=== PATIENT | male | born 1980 | race Caucasian/White ===

== ENCOUNTER 2018-12-25 15:01 | Emergency (ER) | payer BC, OTHER ==
[2018-12-25 15:12] VITALS: BMI 42.4
--- NOTE | 2018-12-25 15:28 | PDOC ---
Attending Attestation - Resident Resident Name: Riley Dent - ED Attending Attestation I have performed the following: I have examined & evaluated the patient, The case was reviewed & discussed with the resident, I agree w/resident's findings & plan, Exceptions are as noted - HPI HPI: 12/25/18 15:26 38y M hx of htn (on lisinopril) presents with hypertension patient was noted to be hypertensive was sent to urgent care and then to the emergency department. Patient denies any other complaints including chest pain, headache, dizziness, shortness of breath, dyspnea on exertion, numbness, tingling, weakness, blurry vision, lower extremity edema. Patient endorses drinking a cup of coffee daily this morning at 5 AM but none since, denies any new medications. The patient did take an extra dose of lisinopril prior to coming in (20mg in the morning, 20 mg prior to arrival). Patient does endorse feeling slightly vertiginous very briefly when he was driving about a week ago but that has since resolved. Patient is currently asymptomatic. The patient did have his blood pressure taken at his doctor's office approximately 2 weeks ago which was normal - Physicial Exam PE: 12/25/18 15:32 GENERAL: The patient is awake, alert, and fully oriented, Nontoxic - in no acute distress. HEAD: Normocephalic, atraumatic. EYES: extraocular movements intact, sclera anicteric, conjunctiva clear. ENT: Normal voice, Moist mucous membranes. NECK: Normal range of motion, supple LUNGS: Breath sounds equal, clear to auscultation bilaterally. No wheezes, no rhonchi, no rales. HEART: Regular rate and rhythm, normal S1 and S2 without murmur, rub or gallop. ABDOMEN: Soft, nontender, No guarding, no rebound. No CVA tenderness EXTREMITIES: Normal range of motion, no edema. NEUROLOGICAL: No facial assymetry, Normal speech, PSYCH: Normal mood, normal affect. SKIN: Warm, Dry, normal turgor, - Medical Decision Making 12/25/18 15:32 Asymptomatic hypertension, will obtain basic blood work, EKG will control the patient's blood pressure 12/25/18 18:53 Patient's lab work was reviewed Will give the patient labetalol for his blood pressure anticipate discharge if blood pressure is managed with follow-up on Friday with Dr. Astorga 12/25/18 19:13 pts repeat bp improved continues to be asypmmtaic will jelani benítez pmd fu on friday return percautions were discussed
--- NOTE | 2018-12-25 15:49 | PDOC ---
History of Present Illness - General Chief Complaint: Blood Pressure Problem Stated Complaint: HYPERTENSION Time Seen by Provider: 12/25/18 15:22 - History of Present Illness Initial Comments: 12/25/18 16:08 38 y/o M hx of HTN presentws to the ER with elevated BP from [facility] where he was undergoing evalution for weight loss surgery. Evaluation at urgent care showed max BP at 230/120 and low at 203/120. Pt is on lisinopril and took his medication as prescribed. He denies any headache, blurry vision, hx of kidney disease, liver disease, heart disease. EKG was done at urgent care and showed sinus rhythm with voltage criteria for LVH. Past History - Past Medical History Allergies/Adverse Reactions: Allergies Allergy/AdvReac Type Severity Reaction Status Date / Time No Known Allergies Allergy Verified 12/25/18 15:07 Home Medications: Ambulatory Orders Lisinopril 20 mg PO BID 12/25/18 COPD: No - Psycho Social/Smoking Cessation Hx Smoking History: Current some day smoker Information on smoking cessation initiated: No Drug/Substance Use Hx: Yes (marijuana) Review of Systems - Review of Systems Constitutional: No: Chills, Fever HEENTM: No: Eye Pain, Blurred Vision Respiratory: No: Cough, Shortness of Breath Cardiac (ROS): No: Chest Pain, Lightheadedness ABD/GI: No: Diarrhea, Nausea, Vomiting : No: Burning, Dysuria Musculoskeletal: No: Back Pain, Joint Pain Integumentary: No: Bruising, Change in Color Neurological: No: Headache, Numbness, Seizure, Tingling Hematologic/Lymphatic: No: Anemia, Blood Clots *Physical Exam - Vital Signs Last Vital Signs Temp Pulse Resp BP Pulse Ox 98.1 F 93 H 18 210/139 H 99 12/25/18 15:10 12/25/18 15:10 12/25/18 15:10 12/25/18 15:10 12/25/18 15:10 - Physical Exam Comments: 12/25/18 16:15 PE: GENERAL: Awake, alert, and fully oriented, in no acute distress HEAD: No signs of trauma, normocephalic, atraumatic EYES: PERRLA, EOMI, sclera anicteric, conjunctiva clear ENT: Auricles normal inspection, hearing grossly normal, nares patent, oropharynx clear without exudates. Moist mucosa NECK: Normal ROM, supple, no lymphadenopathy, JVD, or masses LUNGS: No distress, speaks full sentences, clear to auscultation bilaterally HEART: Regular rate and rhythm, normal S1 and S2, no murmurs, rubs or gallops, peripheral pulses normal and equal bilaterally. ABDOMEN: Soft, nontender, normoactive bowel sounds. No guarding, no rebound. No masses EXTREMITIES : Normal inspection, Normal range of motion, no edema. No clubbing or cyanosis NEUROLOGICAL: Cranial nerves II through XII grossly intact. Normal speech, normal gait, no focal sensorimotor deficits SKIN: Warm, Dry, normal turgor, no rashes or lesions noted ED Treatment Course - LABORATORY CBC & Chemistry Diagram: 12/25/18 16:49 12/25/18 16:49 Medical Decision Making - Medical Decision Making \ 12/25/18 16:16 38 y/o M hx of HTN presentws to the ER with elevated BP from [facility] where he was undergoing evalution for weight loss surgery. EKG from urgent care: sinus rhythm voltage criteria for LVH. cbc, cmp Reasses blood pressure. 12/25/18 17:06 Bp still elevated 183/113 -Pt will receive 20mg of labetalol IV - Reasess after 12/25/18 18:48 cbc, cmp unremarkable 12/25/18 19:05 Repeat blood pressure 167/118 after labetalol 20mg IV Discharge - Discharge Information Problems reviewed: Yes Clinical Impression/Diagnosis: Hypertension Qualifiers: Hypertension type: essential hypertension Qualified Code(s): I10 - Essential ( primary) hypertension Condition: Improved Disposition: HOME - Admission No - Follow up/Referral Referrals: Mary Astorga MD [Primary Care Provider] - - Patient Discharge Instructions Patient Printed Discharge Instructions: DI for High Blood Pressure, How to Monitor Your Blood Pressure at Home Additional Instructions: You were seen in the ER for high blood pressure You were given medication for blood pressure control Monitor your blood pressure at home and take all medications as prescribed by your primary care doctor Keep the appointment you made with your primary care provider Dr. Astorga for Friday to discuss your care and adjust medications as needed RETURN TO THE ER you develop headache, blurry vision, nausea , vomiting , fevers , chills. - Post Discharge Activity
[2018-12-25] MEDS ORDERED: LABETALOL HCL 100 MG TABLET (FP) PO ONE (17:04)
[2018-12-25 17:26] LABS: BASO % 0.8 % (0-2.0); EOS % 0.8 % (0-4.5); HEMATOCRIT 44.7 % (35.4-49); HEMOGLOBIN 15.8 GM/dL (11.7-16.9); LYMPH % 19.9 % (8-40); MCH 30.1 pg (25.7-33.7); MCHC 35.4 g/dl (32.0-35.9); MEAN CELL VOLUME 84.9 fl (80-96); MEAN PLT VOLUME 8.4 fl (7.5-11.1); MONO % 4.8 % (3.8-10.2); NEUT % 73.7 % (42.8-82.8); PLATELET COUNT 214 K/MM3 (134-434); RBC 5.26 M/mm3 (4.00-5.60); RDW 14.1 % (11.9-15.9); WHITE BLOOD COUNT 8.7 K/mm3 (4.0-10.0)
[2018-12-25 17:46] LABS: ALBUMIN 3.8 g/dl (3.4-5.0); BILIRUBIN,TOTAL 0.5 mg/dL (0.2-1); BLOOD UREA NITROGEN 18.4 mg/dL (7-18); CALCIUM 9.3 mg/dL (8.5-10.1); CREATININE 0.9 mg/dL (0.55-1.3); POTASSIUM 4.2 mmol/L (3.5-5.1)
[2018-12-25] MEDS ORDERED: LABETALOL HCL 5 MG/1 ML (100MG/20 ML VIAL) IVPUSH ONE (18:35)
[2018-12-25] MEDS ORDERED: LABETALOL HCL 5 MG/1 ML (200MG/40ML VIAL) IVPB ONE (18:36)
[2018-12-25 19:01] VITALS: TEMP 98.3
[2018-12-25 19:15] VITALS: BP 167/118; PULSE 74
== END 2018-12-25 19:13 | disposition home or self-care (01) ==
LOC: JER 15:01
PROC: 3E033GC Introduction of Other Therapeutic Substance into Peripheral Vein, Percutaneous Approach (ICD-10-PCS; principal; 2018-12-25)
DX: I10 Essential (primary) hypertension (principal); F17.210 Nicotine dependence, cigarettes, uncomplicated
CPT/HCPCS: 36415; 80053; 85025; 99283-25

== ENCOUNTER 2022-08-13 04:01 | Day surgery (SDC) | payer OTHER ==
[2022-08-09 16:26] VITALS: BMI 34.3
[2022-08-13] MEDS ORDERED: BUPIVACAINE HCL/PF 0.5% (5MG/ML) 10 ML VIAL ONE (10:21)
[2022-08-13] MEDS ORDERED: BUPIVACAINE HCL/PF 0.25% (2.5MG/ML) 10 ML VIAL ONE (10:21)
[2022-08-13] MEDS ORDERED: LIDOCAINE HCL 1%, 10 MG/ML (10ML VIAL) MDV ONE (10:21)
[2022-08-13] MEDS ORDERED: MIDAZOLAM HCL 2 MG/2 ML SINGLE DOSE VIAL ONE (10:29)
[2022-08-13] MEDS ORDERED: PROPOFOL 20 ML ONE ×2 (10:29→10:59)
[2022-08-13] MEDS ORDERED: LIDOCAINE HCL/PF 2% SDV 5ML VIAL ONE (10:45)
[2022-08-13] MEDS ORDERED: ceFAZolin SODIUM 1 GM VIAL ONE (10:46)
[2022-08-13] MEDS ORDERED: SODIUM CHLORIDE 0.9% P/F 10 ML VIAL IJ ONE (10:46)
[2022-08-13] MEDS ORDERED: ceFAZolin SODIUM 1 GM VIAL IVPB ONE (10:57)
[2022-08-13] MEDS ORDERED: BUPIVACAINE HCL/PF 0.5% (5 MG/ML) 30 ML VIAL IJ ONE ×2 (11:11)
[2022-08-13] MEDS ORDERED: LIDOCAINE HCL 1%, 10 MG/ML (20ML VIAL) NR ONE ×2 (11:11)
[2022-08-13] MEDS ORDERED: KETOROLAC TROMETHAMINE 30 MG/1 ML VIAL ONE (11:32)
[2022-08-13] MEDS ORDERED: PROMETHAZINE HCL 25 MG/1 ML VIAL IVPB PRN (11:48)
[2022-08-13] MEDS ORDERED: oxyCODONE HCL 5 MG TABLET PO PRN (11:48)
[2022-08-13] MEDS ORDERED: ONDANSETRON 4 MG/2 ML VIAL IVPUSH PRN (11:48)
[2022-08-13] MEDS ORDERED: LACTATED RINGERS SOLUTION 1,000 ML IV SCH (12:00)
[2022-08-13 14:08] VITALS: RESP 18; TEMP 97.9
[2022-08-13 14:12] VITALS: BP 151/89; PULSE 65
== END 2022-08-13 13:15 | disposition home or self-care (01) ==
LOC: JASU-SURG 04:01
PROVIDERS: ATTEND Surgery
PROC: 0JBC0ZZ Excision of Pelvic Region Subcutaneous Tissue and Fascia, Open Approach (ICD-10-PCS; principal; 2022-08-13 13:30)
DX: L72.3 Sebaceous cyst (principal)
CPT/HCPCS: 88304-TC; 94760